=== PATIENT | female | born 1955 | race Caucasian/White ===

== ENCOUNTER 2018-07-25 16:14 | Emergency (ER) | payer MEDICARE ==
[~2018-07-25] VITALS: Ht 157.5 cm; Wt 61.0 kg
[2018-07-25 16:29] VITALS: BP 151/82
[2018-07-25] MEDS ORDERED: HYDROcodone/APAP 5/325 TABLET PO ONE (17:00)
[2018-07-25] MEDS ORDERED: WARF2.5T PO ×2 (17:14)
[2018-07-25] MEDS ORDERED: PARO10TA56 PO (17:14)
[2018-07-25] MEDS ORDERED: SIMV40TA3 PO (17:15)
[2018-07-25] MEDS ORDERED: ESZO3TAB28 PO (17:16)
[2018-07-25 17:18] LABS: INTERNATIONAL NORMALIZED RATIO 3.59 (0.93-1.1); PROTHROMBIN TIME 36.2 Seconds (9.6-11.5)
[2018-07-25] MEDS ORDERED: HYDROcodone/APAP 5/325 TABLET ONE (17:19)
== END 2018-07-25 18:58 | disposition home or self-care (01) ==
LOC: ED 18:52
DX: S83.92XA Sprain of unspecified site of left knee, initial encounter (principal); F17.200 Nicotine dependence, unspecified, uncomplicated; W01.0XXA Fall on same level from slipping, tripping and stumbling without subsequent striking against object, initial encounter; Y93.89 Activity, other specified; Y92.410 Unspecified street and highway as the place of occurrence of the external cause; Y99.8 Other external cause status
CPT/HCPCS: 36415; 85610; 99285